=== PATIENT | female | born 1950 | race Caucasian/White ===

== ENCOUNTER 2018-12-18 10:56 | Inpatient (IN) ==
[2018-12-18] MEDS ORDERED: cefOXitin 2,000 MG in Water for inj. (sterile) 20 ML IVP ONE (11:20)
[2018-12-18] MEDS ORDERED: Albuterol 2.5 MG/3 ML NEBULIZER IH PRN (11:20)
[2018-12-18] MEDS ORDERED: Ringers Solution, Lactated 1,000 ML IVC SCH (11:30)
[2018-12-18] MEDS ORDERED: Gabapentin 300 MG CAPSULE PO ONE (11:42)
[2018-12-18] MEDS ORDERED: traMADol 50 MG TABLET PO ONE (11:42)
[2018-12-18] MEDS ORDERED: Celecoxib 200 MG CAPSULE PO ONE (11:42)
[2018-12-18] MEDS ORDERED: *HR* HYDROmorphone (PF) 1 MG/ML SYRINGE IVP PRN (11:43)
[2018-12-18] MEDS ORDERED: Ondansetron 4 MG/2 ML VIAL IVP ONE (11:43)
[2018-12-18] MEDS ORDERED: Lidocaine -MPF 2% 2 ML VIAL ONE (12:02)
[2018-12-18] MEDS ORDERED: Ondansetron 4 MG/2 ML VIAL ONE (12:02)
[2018-12-18] MEDS ORDERED: Neostigmine Methylsulfate 3 MG/3 ML SYRINGE ONE (12:02)
[2018-12-18] MEDS ORDERED: *HR* FentaNYL (PF) 100 MCG/2 ML VIAL ONE ×2 (12:02→13:05)
[2018-12-18] MEDS ORDERED: *HR* Rocuronium Bromide 50 MG/5 ML VIAL ONE ×2 (12:02→14:01)
[2018-12-18] MEDS ORDERED: Dexamethasone 4 MG/ML VIAL ONE (12:02)
[2018-12-18] MEDS ORDERED: *HR* Midazolam HCl 2 MG/2 ML VIAL ONE ×2 (12:02→12:22)
[2018-12-18] MEDS ORDERED: *HR* Propofol 200 MG/20 ML VIAL IVP ONE (12:03)
[2018-12-18] MEDS ORDERED: *HR* HYDROMORPHONE 2 MG/ML VIAL ONE ×2 (12:21→15:15)
[2018-12-18] MEDS ORDERED: *HR* PHENYLEPHRINE 1,000 MCG/10 ML SYRINGE IVP ONE (13:31)
[2018-12-18] MEDS ORDERED: Acetaminophen IV 1,000 MG/100 ML INFUS..BTL ONE (13:56)
[2018-12-18] MEDS ORDERED: Naloxone 0.4 MG/ML INJ IVP PRN (15:26)
[2018-12-18] MEDS: 0.9 % Sodium Chloride 1,000 ML IVC SCH (18:03)
[2018-12-18] MEDS: Ketorolac 15 MG/ML VIAL IVP SCH (18:04)
[2018-12-18] MEDS: *HR* Heparin 5,000 UNIT/ML VIAL SQ SCH (18:04)
[2018-12-19] MEDS: Ketorolac 15 MG/ML VIAL IVP SCH ×3 (00:13→11:44)
[2018-12-19 02:47] LABS: Basophils % 0.1 %; Hematocrit 34.4 % (35.3-44.9); Hemoglobin 11.2 g/dL (11.5-15.4); Immature Granulocytes % 0.4 % (0-4); Lymphocytes # 1.2 K/mcL (0.6-4.6); Lymphocytes % 12.2 %; Mean Corpuscular HGB Conc 32.6 g/dL (31.6-35.5); Mean Corpuscular Hemoglobin 30.4 pg (28.0-33.3); Mean Corpuscular Volume 93.2 fL (83.0-100.0); Mean Platelet Volume 10.5 fL (9.4-12.4); Monocytes # 0.8 K/mcL (0.0-1.3); Monocytes % 7.9 %; Neutrophils # 7.9 K/mcL (1.6-8.9); Platelet Count 255 K/mcL (140-400); Red Blood Count 3.69 M/mcL (3.82-4.97); Red Cell Distribution Width 12.5 % (11.5-14.5); Segmented Neutrophils % 79.4 %
[2018-12-19 03:00] LABS: BUN/Creatinine Ratio 27 (6-26); Blood Urea Nitrogen 17 mg/dL (8-23); Calcium 8.4 mg/dL (8.6-10.3); Carbon Dioxide 23 mEq/L (23-29); Chloride 111 mEq/L (98-107); Glucose 115 mg/dL (70-105); Osmolality,Calculated 290 (280-300); Potassium 4.3 mEq/L (3.5-5.1); Sodium 139 mEq/L (136-145); eGFR For African Americans > 60 (> 60); eGFR For Non-African Americans > 60 (> 60)
[2018-12-19] MEDS: 0.9 % Sodium Chloride 1,000 ML IVC SCH (05:38)
[2018-12-19] MEDS: *HR* Heparin 5,000 UNIT/ML VIAL SQ SCH ×2 (05:40→18:57)
[2018-12-19] MEDS ORDERED: Ibuprofen 600 MG TABLET PO PRN (11:58)
[2018-12-19] MEDS ORDERED: *HR* OxyCODONE/APAP 5/325 TABLET PO PRN (11:58)
[2018-12-19] MEDS ORDERED: Acetaminophen 325 MG TABLET PO PRN (14:54)
[2018-12-20] MEDS: *HR* Heparin 5,000 UNIT/ML VIAL SQ SCH (05:57)
[2018-12-20 07:08] VITALS: BP 149/76
== END 2018-12-20 10:47 | disposition home or self-care (01) | DRG 331 ==
LOC: SAMDAY 10:56 → 3ANU 16:36
PROVIDERS: ADMIT Surgery; ATTEND Surgery